=== PATIENT | female | born 1985 | race Caucasian/White ===

== ENCOUNTER → 2024-03-08 19:08 | Outpatient (REF) | payer OTHER, SELFPAY | LOC: WDC 19:08 | PROVIDERS: ATTENDING PHYSICIAN Nurse Practitioner; FAMILY PHYSICIAN Internal Medicine | DX: Z12.31 Encounter for screening mammogram for malignant neoplasm of breast (principal); Z12.39 Encounter for other screening for malignant neoplasm of breast | CPT/HCPCS: 77063; 77067 ==

== ENCOUNTER → 2025-03-27 19:32 | Outpatient (REF) | payer OTHER, SELFPAY | LOC: WDC 19:32 | PROVIDERS: ATTENDING PHYSICIAN Nurse Practitioner | DX: Z12.39 Encounter for other screening for malignant neoplasm of breast (principal); Z12.31 Encounter for screening mammogram for malignant neoplasm of breast | CPT/HCPCS: 77063; 77067 ==